=== PATIENT | female | born 1970 | race Caucasian/White ===

== ENCOUNTER → 2021-01-16 | Outpatient (CLI) | payer OTHER ==
[2021-01-16 17:03] LABS: Basophils % (A) 1 %; Eosinophils # (A) 0.1 k/uL (0-0.7); Eosinophils % (A) 2 %; HCT 43.9 % (34.0-46.0); HGB 14.5 gm/dL (11.4-16.0); Lymphocytes # (A) 1.5 k/uL (1.0-4.8); Lymphocytes % (A) 29 %; MCHC 33.1 g/dL (31.0-37.0); MCV 93.8 fL (80.0-100.0); Mean Platelet Volume 7.4; Monocytes # (A) 0.4 k/uL (0-1.0); Monocytes % (A) 8 %; Neutrophils # (A) 3.1 k/uL (1.3-7.7); Neutrophils % (A) 58 %; Platelet Count 186 k/uL (150-450); RBC 4.68 m/uL (3.80-5.40); RDW 14.6 % (11.5-15.5); WBC 5.4 k/uL (3.8-10.6)
[2021-01-16 17:13] LABS: African American GFR (CKD) >90 (>60 ml/min/1.73 sqM); Anion Gap 5 mmol/L; Blood Urea Nitrogen 15 mg/dL (7-17); Calcium 9.6 mg/dL (8.4-10.2); Carbon Dioxide 29 mmol/L (22-30); Chloride 107 mmol/L (98-107); Glucose 93 mg/dL (74-99); Non-African American GFR(CKD) >90 (>60 ml/min/1.73 sqM); Potassium 4.2 mmol/L (3.5-5.1); Sodium 141 mmol/L (137-145)
== END | disposition home or self-care (01) ==
LOC: LABPAT 15:56
PROVIDERS: ATTEND Obstetrics & Gynecology
DX: Z01.818 Encounter for other preprocedural examination (principal)
CPT/HCPCS: 36415; 80048; 85025; 86850; 86870; 86880; 86900; 86901; 93005

== ENCOUNTER 2021-01-28 05:54 | Inpatient (IN) | payer OTHER ==
[2021-01-17 11:45] VITALS: BMI 30.9
--- NOTE | 2021-01-27 16:32 | P.HPOB ---
History of Present Illness H&P Date: 01/27/21 Chief Complaint: Menorrhagia with irregular cycle, uterine fibroids This is a 50 y.o. female, 4, para 4 who presents for total abdominal hysterectomy with bilateral salpingooophorectomy due to uterine fibroids and menorrhagia with irregular cycle. Her ultrasound showed uterus 12.5 x 7.5 x 8.8 cm with multiple fibroids, the largest measuring 4.5 cm, and a pedunulated fibroid measuring 4.1 cm. Endometrium was not clearly delineated. Both ovaries were normal. Her menses occur every 24-25 days and last 7-8 days and are heavy with clots. She then spots up to 3 weeks. This has been going on for about 4 years. OB Hx: History of 1 section and 3 VBACs. Title I Math Tutor Hx No history of STDs Social Hx: . Works as a quality assurance supervisor chassis. Review of Systems Constitutional: Reports night sweats, Reports weight gain, Denies chills, Denies fever Eyes: denies blurred vision, denies pain Ears, nose, mouth and throat: Denies headache, Denies sore throat Cardiovascular: Denies chest pain, Denies shortness of breath Respiratory: Denies cough Gastrointestinal: Denies abdominal pain, Denies diarrhea, Denies nausea, Denies vomiting Genitourinary: Reports dysmenorrhea, Reports menorrhagia, Reports urgency Menstruation: Reports menses 8 or > days, Reports menses variable, Reports period heavy Musculoskeletal: Reports low back pain Integumentary: Denies pruritus, Denies rash Neurological: Denies numbness, Denies weakness Psychiatric: Reports anxiety, Denies depression Endocrine: Reports flushing, Reports weight change Past Medical History Past Medical History: No Reported History Additional Past Medical History / Comment(s): fully vaccinated for covid History of Any Multi-Drug Resistant Organisms: None Reported Past Surgical History: Section, Orthopedic Surgery, Tubal Ligation Additional Past Surgical History / Comment(s): trigger finger surg. Past Anesthesia/Blood Transfusion Reactions: Motion Sickness, Postoperative Nausea & Vomiting (PONV) Past Psychological History: Anxiety Smoking Status: Current every day smoker Past Alcohol Use History: Occasional Past Drug Use History: None Reported - Past Family History Sister(s) Family Medical History: Deep Vein Thrombosis (DVT) Medications and Allergies Home Medications Medication Instructions Recorded Confirmed Type Multivitamins, Thera [Multivitamin 1 tab PO DAILY 01/17/21 01/17/21 History (formulary)] Allergies Allergy/AdvReac Type Severity Reaction Status Date / Time No Known Allergies Allergy Verified 01/17/21 11:16 Exam Osteopathic Statement: *. No significant issues noted on an osteopathic structural exam other than those noted in the History and Physical/Consult. HEENT: within normal limits Heart: regular rate and rhythm Lungs: clear to auscultation bilaterally Abdomen: soft, non-tender Pelvic: uterus retroverted, sl. enlarged, nodular, with no adnexal masses Extremities: neg. Alannah's. Assessment and Plan (1) Uterine leiomyoma Current Visit: No Status: Acute Code(s): D25.9 - LEIOMYOMA OF UTERUS, UNSPECIFIED SNOMED Code(s): 65047275 (2) Menorrhagia with irregular cycle Current Visit: No Status: Acute Code(s): N92.1 - EXCESSIVE AND FREQUENT MENSTRUATION WITH IRREGULAR CYCLE SNOMED Code(s): 239736035 Plan: Proceed with total abdominal hysterectomy with bilateral salpingooophorectomy. I have discussed the risks, benefits, and alternative therapies for the above-mentioned procedure and for both sedation/anesthesia as well as necessary blood products administration, if indicated, as they pertain to this patient. The patient has indicated her understanding and acceptance of the risks and procedures discussed.
[2021-01-28] MEDS ORDERED: DEXAMETHASONE SOD PHOSPHATE 4 MG/ML 1 ML VIAL IV ONE (06:06)
[2021-01-28] MEDS ORDERED: LIDOCAINE 1% (10MG/ML) FOR IV START INTRADERMA PRN (06:06)
[2021-01-28] MEDS ORDERED: LACTATED RINGERS 1,000 ML IV SCH (06:06)
[2021-01-28] MEDS ORDERED: ONDANSETRON 4 MG/2 ML VIAL IVP ONE (06:06)
[2021-01-28] MEDS ORDERED: SCOPOLAMINE 1.5MG/72HR PATCH TRANSDERM ONE (06:06)
[2021-01-28] MEDS ORDERED: HYDROmorphone 0.5 MG/0.5 ML SYRINGE IVP PRN (07:00)
[2021-01-28] MEDS ORDERED: fentaNYL (PF) 50 MCG/ML 2 ML AMP IV ONE (07:09)
[2021-01-28] MEDS ORDERED: MIDAZOLAM 2 MG/2 ML VIAL IV ONE (07:09)
[2021-01-28] MEDS ORDERED: ROCURONIUM 10 MG/ML (5 ML VIAL) IV ONE (07:29)
[2021-01-28] MEDS ORDERED: MORPHINE SULFATE (PF) 0.3 MG/0.3 ML SYR ONE (07:29)
[2021-01-28] MEDS ORDERED: fentaNYL (PF) 50 MCG/ML 2 ML AMP ONE (07:29)
[2021-01-28] MEDS ORDERED: NEOSTIGMINE 1 MG/ML 10 ML VIAL ONE (07:29)
[2021-01-28] MEDS ORDERED: PROPOFOL 10 MG/ML 20 ML VIAL IV ONE (07:29)
[2021-01-28] MEDS ORDERED: LIDOCAINE 1% INJ 10MG/ML (20 ML MDV) ONE (07:29)
[2021-01-28] MEDS ORDERED: GLYCOPYRROLATE 0.2 MG/ML 2 ML VIAL ONE (07:29)
[2021-01-28] MEDS ORDERED: SUCCINYLCHOLINE CHLORIDE 100 MG/5 ML SYR IV ONE (07:29)
--- NOTE | 2021-01-28 08:54 | P.OP ---
Date of Procedure: 01/28/21 Preoperative Diagnosis: Menorrhagia with irregular cycle Uterine fibroids Postoperative Diagnosis: Same Procedure(s) Performed: Total abdominal hysterectomy with bilateral salpingo-oophorectomy Anesthesia: GETA, spinal (Duramorph) Surgeon: Albertina Tello Livestock Handler #1: Suleiman Napier Estimated Blood Loss (ml): 50 Pathology: other (Uterus with cervix and bilateral tubes and ovaries) Condition: stable Disposition: floor Indications for Procedure: This is a 50 y.o. female, 4, para 4 who presents for total abdominal hysterectomy with bilateral salpingooophorectomy due to uterine fibroids and menorrhagia with irregular cycle. Her ultrasound showed uterus 12.5 x 7.5 x 8.8 cm with multiple fibroids, the largest measuring 4.5 cm, and a pedunulated fibroid measuring 4.1 cm. Endometrium was not clearly delineated. Both ovaries were normal. Her menses occur every 24-25 days and last 7-8 days and are heavy with clots. She then spots up to 3 weeks. This has been going on for about 4 years. Operative Findings: Uterus was bulky with one fairly large subserosal fibroid. Both tubes and ovaries appeared normal. Description of Procedure: The patient is taken to the operating room where she is placed in the dorsal supine position. She is prepped and draped in the normal sterile fashion including Belle catheter insertion and vaginal prep. A Pfannenstiel skin incision is made with a scalpel. A second knife was used to carry the incision down to the underlying layer of fascia. The fascia was nicked in the midline with a scalpel and then extended laterally bilaterally with Fine scissors. The superior aspect of the fascial incision was grasped with Leonela clamps, elevated off the underlying rectus muscle in the midline and then cut with Fine scissors. The inferior aspect of the fascial incision was grasped with Leonela clamps, elevated off the underlying rectus muscle in the midline and then cut with Fine scissors. Next the peritoneum was identified and entered sharply with Fine scissors. It is extended superiorly and in fairly with Metzenbaum scissors with good visualization of underlying structures. Next the Noble retractor is placed in the bladder blade was inserted. The bowels were packed with a 3 yard laparotomy sponge. Next the uterus is brought up incision and the corneal regions are grasped with Nora clamps on both sides. The infundibulopelvic ligament was clamped on either side with a Zoë clamp, cut with Fine scissors, and sutured with 0 Vicryl suture in Zoë transfixion stitches. The remaining uterine ovarian ligament and round ligament was clamped on either side with a Zoë clamp, cut with Fine scissors, and sutured with 0 Vicryl suture in Zoë transfixion stitches. The vesicouterine peritoneum was sharply dissected away from the bladder with Metzenbaum scissors and pushed inferiorly. The uterine arteries are clamped on either side with a Zoë clamp. The uterine arteries are then cut with Fine scissors, and sutured with 0 Vicryl suture in Zoë transfixion stitches. Next the cardinal ligaments were clamped on either side with Zoë clamp, cut with Fine scissors, and sutured with 0 Vicryl suture in Zoë transfixion stitches. The uterosacral ligaments are clamped on either side with Zoë clamps, cut with Fine scissors, and sutured with 0 Vicryl suture in Zoë transfixion stitches on either side. The edges of the vaginal cuff were clamped on either side with a Zoë clamp, cut with Fine scissors, and sutured with 0 Vicryl suture in Zoë transfixion stitches and held on either side. The vaginal mucosa was then cut just below the level of the cervix and the specimen is removed from the field. The edges of the vaginal cuff were held with Leonela clamps. Next the previously held corners of each side of the vaginal cuff were then whipstitched along the connective tissue on either side and brought through the corner of the cuff and tied. Next the vaginal cuff was sutured with 0 Vicryl suture in a running locked fashion. Good hemostasis was noted. Copious irrigation is carried out with warm saline. Excellent hemostasis is noted. All sponges are removed from the abdomen and sponge counts are correct. The peritoneum is then closed with 0 Vicryl suture in a running fashion. The muscle was then reapproximated with 0 Vicryl suture in interrupted fashion. The fascia layer is then closed with 0 PDS suture in a running fashion with the knots buried on either side and in the midline. Next the subcutaneous tissues closed with 2-0 Vicryl suture in a running fashion. The skin is closed with panchito. All sponge and needle counts are correct and the patient is taken to recovery room in stable condition.
[2021-01-28] MEDS ORDERED: diphenhydrAMINE 50 MG/ML 1 ML VIAL IVP ONE (09:14)
[2021-01-28] MEDS ORDERED: LACTATED RINGERS 1,000 ML IV ONE (09:56)
[2021-01-28] MEDS ORDERED: ZOLPIDEM 5 MG TAB PO PRN (10:08)
[2021-01-28] MEDS ORDERED: ONDANSETRON 4 MG/2 ML VIAL IVP PRN (10:08)
[2021-01-28] MEDS ORDERED: SIMETHICONE 80 MG CHEWABLE PO PRN (10:08)
[2021-01-28] MEDS ORDERED: KETOROLAC 15 MG/ML 1 ML VIAL IVP PRN (10:08)
[2021-01-28] MEDS ORDERED: METOCLOPRAMIDE 5 MG/ML 2 ML VIAL IVP PRN (10:08)
[2021-01-28] MEDS ORDERED: diphenhydrAMINE 50 MG/ML 1 ML VIAL IVP PRN (10:08)
[2021-01-28] MEDS ORDERED: HYDROcodone/APAP 7.5-325MG 1 EACH TAB PO PRN (10:08)
[2021-01-28] MEDS ORDERED: HYDROcodone/APAP 5-325MG 1 EACH TAB PO PRN (10:08)
--- NOTE | 2021-01-28 10:53 | P.ANPRN ---
Procedure Note - Anesthesia - Epidural/Spinal Spinal Time Out Performed: Yes Date of Procedure: 01/28/21 Procedure Start Time: 07:09 Procedure Stop Time: 07:14 Location of Patient: PreOp Indication: Acute Post-Operative Pain, Requested by Surgeon (Omer) Sedation Type: Sedate with meaningful contact maintained Preparation: Sterile Prep Number of Attempts: 1 Position: Sitting Catheter: None Needle Guage: 25 Injectate: Test Dose Lidocaine1.5% w/1:200,000 epi Narrative: Duramorph 300mcg and Fentanyl 25mcg. Blood Aspirated: No Pain Paresthesia on Injection Noted: No Events: Uneventful and Well Tolerated
[2021-01-28] MEDS: SENNOSIDES-DOCUSATE SODIUM 1 EACH TAB PO SCH ×2 (11:19→22:13)
[2021-01-28] MEDS: NICOTINE 21MG/24HR PATCH TRANSDERM SCH (21:18)
[2021-01-29] MEDS: IBUPROFEN 600 MG TAB PO PRN ×3 (00:06→22:10)
[2021-01-29 06:47] LABS: Basophils % (A) 0 %; Eosinophils # (A) 0.1 k/uL (0-0.7); Eosinophils % (A) 1 %; HCT 36.9 % (34.0-46.0); HGB 12.5 gm/dL (11.4-16.0); Lymphocytes # (A) 1.5 k/uL (1.0-4.8); Lymphocytes % (A) 22 %; MCH 32.1 pg (25.0-35.0); MCHC 33.9 g/dL (31.0-37.0); MCV 94.9 fL (80.0-100.0); Mean Platelet Volume 7.2; Monocytes # (A) 0.4 k/uL (0-1.0); Monocytes % (A) 6 %; Neutrophils # (A) 4.7 k/uL (1.3-7.7); Neutrophils % (A) 69 %; Platelet Count 144 k/uL (150-450); RBC 3.89 m/uL (3.80-5.40); RDW 13.8 % (11.5-15.5); WBC 6.8 k/uL (3.8-10.6)
[2021-01-29] MEDS ORDERED: ACETAMINOPHEN TAB 325 MG TAB PO PRN (07:46)
--- NOTE | 2021-01-29 09:36 | P.DS ---
Providers Date of admission: 01/28/21 05:54 Expected date of discharge: 01/29/21 Attending physician: Albertina Tello Primary care physician: Memo Stout - Discharge Diagnosis(es) (1) Uterine leiomyoma Current Visit: No Status: Acute (2) Menorrhagia with irregular cycle Current Visit: No Status: Acute Hospital Course: This is a 50-year-old female who underwent a total abdominal hysterectomy with bilateral salpingo-oophorectomy on 01/28/2021. Postoperatively she has done well. She is passing flatus but no bowel movement yet. Her pain is well- controlled with spinal Duramorph and ibuprofen. She is tolerating clear liquids and is ready to go up to regular diet. Bleeding has been minimal. She is urinating without difficulty. Vital signs are stable. Abdomen is soft with positive bowel sounds 4. Incision is clean dry and intact with panchito in place. There is a small amount of ecchymosis noted above the incision. A teo- pad shows scant serosanguineous discharge. Extremities show negative Homans. Impression is status post SIVAKUMAR/BSO postoperative day #1. Patient is very anxious to go home. Diet will be advanced to regular today. As long as her pain is well-controlled this afternoon, she will be able to be discharged home. She will be given a prescription for ibuprofen and a few [place] justification needs it. She has been counseled on opioid use and has signed a consent form. She is advised to follow up in the office on for staple removal and a postop erative appointment. She is advised to call the office if she has any further questions or concerns prior to her appointment time. Procedures: Total abdominal hysterectomy with bilateral submental nephrectomy on 01/28/2021 Patient Condition at Discharge: Stable Plan - Discharge Summary Discharge Rx Participant: Yes New Discharge Prescriptions: No Action Multivitamins, Thera [Multivitamin (formulary)] 1 tab PO DAILY Discharge Medication List Multivitamins, Thera [Multivitamin (formulary)] 1 tab PO DAILY 01/17/21 [History] Follow up Appointment(s)/Referral(s): Albertina Tello DO [Doctor of Osteopathic Medicine] - 01/31/21 Patient Instructions/Handouts: *Surgery [facility] - Scopalamine Patch Instructions Activity/Diet/Wound Care/Special Instructions: Activity as tolerated. No heavy lifting. Diet as tolerated. May shower, but no tub baths for 1 week. No intercourse for [address] as she is not taking any narcotic pain medication and she has the reaction time to hit her brakes. Discharge Disposition: HOME SELF-CARE
[2021-01-29] MEDS: NICOTINE 21MG/24HR PATCH TRANSDERM SCH (18:40)
[2021-01-29] MEDS: SENNOSIDES-DOCUSATE SODIUM 1 EACH TAB PO SCH ×2 (19:27→19:28)
[2021-01-30 00:05] VITALS: BP 133/72
[2021-01-30 10:45] VITALS: PULSE 82; RESP 18; TEMP 98.9
== END 2021-01-30 09:40 | disposition home or self-care (01) | DRG 743 ==
LOC: 2ORMAIN 05:54 → 4FBP 09:31
PROVIDERS: ADMIT Obstetrics & Gynecology; ATTEND Obstetrics & Gynecology
PROC: 0UT20ZZ Resection of Bilateral Ovaries, Open Approach (ICD-10-PCS; 2021-01-28)
PROC: 0UT70ZZ Resection of Bilateral Fallopian Tubes, Open Approach (ICD-10-PCS; 2021-01-28)
PROC: 0UT90ZZ Resection of Uterus, Open Approach (ICD-10-PCS; principal; 2021-01-28 07:30)
DX: N92.0 Excessive and frequent menstruation with regular cycle (principal); D25.2 Subserosal leiomyoma of uterus; F17.200 Nicotine dependence, unspecified, uncomplicated; Z90.5 Acquired absence of kidney
CPT/HCPCS: 36415; 81025; 85025; 86850; 86870; 86880; 86900; 86901; 87635; 88307